=== PATIENT | male | born 1960 ===

== ENCOUNTER 2020-01-03 16:30 | Inpatient (IN) | payer OTHER ==
[~2020-01-03] VITALS: Ht 165.1 cm; Wt 73.6 kg
[2020-01-03 16:45] VITALS: BP 126/67
[2020-01-03] MEDS ORDERED: OxyCODONE HCL/ACETAMINOPHEN 5-325 MG TABLET PO PRN (18:15)
[2020-01-03] MEDS ORDERED: MAGNESIUM HYDROXIDE SUSPENSION 30 ML UDCUP PO PRN (18:15)
[2020-01-03] MEDS ORDERED: ZOLPIDEM TARTRATE 5 MG TABLET PO PRN (18:15)
[2020-01-03 19:17] LABS: BASOPHILS % (AUTO) 0.3 % (0.0-2.0); EOSINOPHILS % (AUTO) 0 % (1.0-6.0); HEMATOCRIT 28.6 % (41-53); HEMOGLOBIN 9.7 g/dL (13.5-17.5); LYMPHOCYTES # (AUTO) 0.8 K/uL (1.0-4.8); LYMPHOCYTES % (AUTO) 9.5 % (22.0-44.0); MEAN CORPUSCULAR HEMOGLOBIN 28.6 pg (26.0-34.0); MEAN CORPUSCULAR HGB CONC 34.1 G/dL (31.0-37.0); MEAN CORPUSCULAR VOLUME 84 fL (80-100); MONOCYTES # (AUTO) 0.7 K/uL (0.1-1.0); MONOCYTES % (AUTO) 7.8 % (2.0-9.0); NEUTROPHILS # (AUTO) 7.2 K/uL (1.8-7.7); NEUTROPHILS % (AUTO) 82.4 % (40.0-70.0); PLATELET COUNT (AUTO) 218 K/uL (150-450); RED CELL DISTRIBUTION WIDTH 14.6 % (11.5-14.5)
[2020-01-03 19:33] LABS: ALBUMIN 0.8 g/dL (3.4-5.0); BILIRUBIN,TOTAL 0.1 mg/dL (0.1-1.0); CALCIUM, TOTAL 7.3 mg/dL (8.8-10.5); CREATININE 2.55 mg/dL (0.60-1.30); TOTAL PROTEIN, SERUM 4.4 g/dL (6.4-8.2)
[2020-01-03] MEDS ORDERED: POTASSIUM CHLORIDE 10 MEQ ER TABLET PO ONE (20:30)
[2020-01-03] MEDS ORDERED: SODIUM CHLORIDE 0.9% 1,000 ML IV ONE (20:30)
[2020-01-03 21:53] VITALS: BP 149/89
[2020-01-04] MEDS: ACETAMINOPHEN 325 MG TABLET PO PRN ×3 (00:20→23:58)
[2020-01-04 00:26] VITALS: BP 163/89
[2020-01-04 05:00] VITALS: BP 130/80
[2020-01-04] MEDS: DEXTROSE 50%-WATER 25 GM/50 ML SYRINGE IVP PRN (06:00)
[2020-01-04] MEDS ORDERED: LISI40TA4 PO (06:57)
[2020-01-04] MEDS ORDERED: AMLO2.5T29 PO (06:57)
[2020-01-04] MEDS ORDERED: TERB250T51 PO (06:57)
[2020-01-04] MEDS ORDERED: METF-514 PO (06:57)
[2020-01-04] MEDS ORDERED: [UNRECOGNIZED DRUG - CODE] PO (06:57)
[2020-01-04] MEDS ORDERED: INSLAN SQ (06:57)
[2020-01-04] MEDS ORDERED: CALC-613 PO (06:57)
[2020-01-04 07:42] LABS: CALCIUM, TOTAL 7.6 mg/dL (8.8-10.5); CREATININE 2.49 mg/dL (0.60-1.30)
[2020-01-04 07:49] LABS: POTASSIUM 2.9 mmol/L (3.5-5.1)
[2020-01-04 08:00] VITALS: BP 156/89
[2020-01-04] MEDS: FAMOTIDINE 20 MG TABLET PO SCH (08:40)
[2020-01-04] MEDS: MULTIVITAMINS WITH MINERALS, THERAPEUTIC TABLET PO SCH (08:40)
[2020-01-04] MEDS ORDERED: POTASSIUM CHLORIDE 20 MEQ ER TABLET PO ONE (09:00)
[2020-01-04] MEDS: AZITHROMYCIN 500 MG/NS 250 ML IV SCH (09:39)
[2020-01-04] MEDS: ZINC SULFATE 220 MG CAPSULE PO SCH ×2 (09:39→21:46)
[2020-01-04] MEDS: HYDROXYCHLOROQUINE SULFATE 200 MG TABLET PO SCH ×2 (09:39→21:46)
[2020-01-04 12:00] VITALS: BP 107/69
[2020-01-04 13:50] LABS: MAGNESIUM 1.7 mg/dL (1.80-2.40); PHOSPHORUS 3.8 mg/dL (2.5-4.9)
[2020-01-04] MEDS: BISMUTH SUBSALICYLATE 524 MG/30 ML SUSPENSION UDCUP PO PRN ×2 (15:09→21:46)
[2020-01-04 16:00] VITALS: BP 134/76
[2020-01-04 20:00] VITALS: BP 160/89
[2020-01-04 20:43] LABS: GLUCOMETER DEV NAME(LOC) 5N.2; GLUCOSE,POINT OF CARE 119 MG/DL (70-110)
[2020-01-04 20:43] LABS: GLUCOMETER DEV NAME(LOC) 5N.2; GLUCOSE,POINT OF CARE 169 MG/DL (70-110)
[2020-01-05 01:00] VITALS: BP 125/74
[2020-01-05 05:39] VITALS: BP 133/68
[2020-01-05] MEDS: DEXTROSE 50%-WATER 25 GM/50 ML SYRINGE IVP PRN (05:44)
[2020-01-05 08:00] VITALS: BP 143/79
[2020-01-05 08:10] LABS: BASOPHILS % (AUTO) 0.4 % (0.0-2.0); EOSINOPHILS % (AUTO) 0.1 % (1.0-6.0); HEMOGLOBIN 10.2 g/dL (13.5-17.5); LYMPHOCYTES # (AUTO) 0.7 K/uL (1.0-4.8); LYMPHOCYTES % (AUTO) 7.2 % (22.0-44.0); MEAN CORPUSCULAR HEMOGLOBIN 29.1 pg (26.0-34.0); MEAN CORPUSCULAR VOLUME 85 fL (80-100); MONOCYTES # (AUTO) 0.5 K/uL (0.1-1.0); MONOCYTES % (AUTO) 4.8 % (2.0-9.0); NEUTROPHILS # (AUTO) 8.5 K/uL (1.8-7.7); PLATELET COUNT (AUTO) 294 K/uL (150-450); RED BLOOD CELL COUNT(AUTO) 3.51 MIL/uL (4.50-5.90); RED CELL DISTRIBUTION WIDTH 14.5 % (11.5-14.5)
[2020-01-05 08:13] LABS: NEUTROPHILS % (AUTO) 87.5 % (40.0-70.0)
[2020-01-05 09:02] LABS: ALBUMIN 0.7 g/dL (3.4-5.0); BILIRUBIN,TOTAL 0.2 mg/dL (0.1-1.0); C-REACTIVE PROTEIN QUANT 14.56 mg/dL (0.00-0.30); CALCIUM, TOTAL 7.4 mg/dL (8.8-10.5); CREATININE 2.61 mg/dL (0.60-1.30); POTASSIUM 3.2 mmol/L (3.5-5.1); TOTAL PROTEIN, SERUM 4.4 g/dL (6.4-8.2)
[2020-01-05] MEDS: HYDROXYCHLOROQUINE SULFATE 200 MG TABLET PO SCH ×2 (09:02→22:13)
[2020-01-05] MEDS: MULTIVITAMINS WITH MINERALS, THERAPEUTIC TABLET PO SCH (09:02)
[2020-01-05] MEDS: ZINC SULFATE 220 MG CAPSULE PO SCH ×2 (09:03→22:13)
[2020-01-05] MEDS: AZITHROMYCIN 500 MG/NS 250 ML IV SCH (09:03)
[2020-01-05] MEDS: FAMOTIDINE 20 MG TABLET PO SCH (09:03)
[2020-01-05 09:05] LABS: D-DIMER 3.92 mg/L FEU (0.00-0.50); PROTHROMBIN TIME 10.5 SEC (9.4-11.6)
[2020-01-05] MEDS ORDERED: POTASSIUM CHLORIDE 20 MEQ ER TABLET PO ONE (11:30)
[2020-01-05] MEDS ORDERED: ASPIRIN 325 MG TABLET PO ONE (11:45)
[2020-01-05] MEDS: HEPARIN SODIUM,PORCINE 5,000 UNITS/ML VIAL SQ SCH ×2 (11:45→20:22)
[2020-01-05 12:30] VITALS: BP 110/71
[2020-01-05 12:39] LABS: ABG A-A DIFF O2 612.3 mmHg (10-20.0); ABG BASE EXCESS -11.2 mmol/L (-2.0-3.0); ABG CARBOXYHEMOGLOBIN 0.3 % (0.0-1.5); ABG HCO3 16.6 mmol/L (22.0-26.0); ABG METHEMOGLOBIN 0.3 % (0.0-1.5); ABG OXYGEN CONTENT 13.5 mL/dL (15.0-23.0); ABG OXYGEN SATURATION 95.4 % (95.0-98.0); ABG OXYHEMOGLOBIN 94.8 % (94.0-100.0); ABG PCO2 26 mmHg (35-45); ABG PH 7.364 (7.35-7.450); ABG TOTAL HEMOGLOBIN 10.1 G/dL (12.0-18.0); PO2, ARTERIAL BG 75.7 mmHg (84.0-92.0); SOURCE, BLOOD GAS ARTERIAL; TEMPERATURE, FAHRENHEIT, BG 98.2 FAHREN (96.0-98.6)
[2020-01-05 12:40] LABS: O2 DEVICE,BLOOD GAS NON REBREATHER (ROOM AIR); SITE, BLOOD GAS LFT BRACHIAL
[2020-01-05 12:41] LABS: GLUCOMETER DEV NAME(LOC) 5N.2; GLUCOSE,POINT OF CARE 134 MG/DL (70-110)
[2020-01-05 12:46] LABS: GLUCOMETER DEV NAME(LOC) 5N.1; GLUCOSE,POINT OF CARE 157 MG/DL (70-110)
[2020-01-05 12:46] LABS: GLUCOMETER DEV NAME(LOC) 5N.1; GLUCOSE,POINT OF CARE 57 MG/DL (70-110)
[2020-01-05 12:47] LABS: GLUCOMETER DEV NAME(LOC) 5N.1; GLUCOSE,POINT OF CARE 67 MG/DL (70-110)
[2020-01-05 12:48] LABS: GLUCOMETER DEV NAME(LOC) 5N.1; GLUCOSE,POINT OF CARE 105 MG/DL (70-110)
[2020-01-05] MEDS ORDERED: ATORVASTATIN CALCIUM 10 MG TABLET PO ONE (13:30)
[2020-01-05 14:01] LABS: POTASSIUM 3.4 mmol/L (3.5-5.1)
[2020-01-05 16:00] VITALS: BP 111/72
[2020-01-05] MEDS ORDERED: VECURONIUM BROMIDE 10 MG/VIAL ONE (16:47)
[2020-01-05] MEDS ORDERED: ETOMIDATE 2 MG/ML 10 ML VIAL ONE (16:47)
[2020-01-05] MEDS ORDERED: FUROSEMIDE 20 MG/2 ML VIAL IVP ONE (17:00)
[2020-01-05 20:00] VITALS: BP 133/71
[2020-01-05 20:36] LABS: GLUCOSE,POINT OF CARE 98 MG/DL (70-110)
[2020-01-05] MEDS ORDERED: POTASSIUM CHLORIDE 8 MEQ ER TABLET PO ONE (22:30)
[2020-01-06] VITALS: BP 135/80
[2020-01-06] MEDS: ACETAMINOPHEN 325 MG TABLET PO PRN (00:17)
[2020-01-06] MEDS ORDERED: ROCURONIUM BROMIDE 10 MG/ML 5 ML VIAL ONE (01:37)
[2020-01-06] MEDS ORDERED: RAPID SEQUENCE KIT [RSI] 1 EACH KIT ONE ×2 (01:38→11:44)
[2020-01-06 04:00] VITALS: BP 140/74
[2020-01-06 06:21] LABS: BASOPHILS % (AUTO) 0.3 % (0.0-2.0); EOSINOPHILS % (AUTO) 0 % (1.0-6.0); HEMATOCRIT 31.2 % (41-53); HEMOGLOBIN 10.2 g/dL (13.5-17.5); LYMPHOCYTES # (AUTO) 0.4 K/uL (1.0-4.8); MEAN CORPUSCULAR HGB CONC 32.6 G/dL (31.0-37.0); MEAN CORPUSCULAR VOLUME 86 fL (80-100); MONOCYTES # (AUTO) 0.5 K/uL (0.1-1.0); MONOCYTES % (AUTO) 3.2 % (2.0-9.0); NEUTROPHILS # (AUTO) 13.5 K/uL (1.8-7.7); PLATELET COUNT (AUTO) 350 K/uL (150-450); RED BLOOD CELL COUNT(AUTO) 3.63 MIL/uL (4.50-5.90); RED CELL DISTRIBUTION WIDTH 14.8 % (11.5-14.5)
[2020-01-06 06:24] LABS: NEUTROPHILS % (AUTO) 93.5 % (40.0-70.0)
[2020-01-06 06:39] LABS: ALBUMIN 0.7 g/dL (3.4-5.0); BILIRUBIN,TOTAL 0.1 mg/dL (0.1-1.0); CALCIUM, TOTAL 7.9 mg/dL (8.8-10.5); CREATININE 2.64 mg/dL (0.60-1.30); MAGNESIUM 1.8 mg/dL (1.80-2.40); POTASSIUM 3.7 mmol/L (3.5-5.1); TOTAL PROTEIN, SERUM 4.8 g/dL (6.4-8.2)
[2020-01-06 08:00] VITALS: BP 159/87
[2020-01-06] MEDS ORDERED: ISOSORB DINIT/HYDRALAZINE HCL 20-37.5 MG TABLET PO SCH (09:00)
[2020-01-06] MEDS ORDERED: CARVEDILOL 3.125 MG TABLET PO SCH (09:00)
[2020-01-06] MEDS: HYDROXYCHLOROQUINE SULFATE 200 MG TABLET PO SCH ×2 (09:16→21:25)
[2020-01-06] MEDS: FAMOTIDINE 20 MG TABLET PO SCH (09:17)
[2020-01-06] MEDS: MULTIVITAMINS WITH MINERALS, THERAPEUTIC TABLET PO SCH (09:17)
[2020-01-06] MEDS: ASPIRIN 81 MG CHEWABLE TABLET PO SCH (09:17)
[2020-01-06] MEDS: ZINC SULFATE 220 MG CAPSULE PO SCH ×2 (09:17→21:25)
[2020-01-06] MEDS: HEPARIN SODIUM,PORCINE 5,000 UNITS/ML VIAL SQ SCH ×2 (09:18→21:00)
[2020-01-06 10:41] LABS: GLUCOSE,POINT OF CARE 88 MG/DL (70-110)
[2020-01-06 10:41] LABS: GLUCOSE,POINT OF CARE 104 MG/DL (70-110)
[2020-01-06] MEDS: AZITHROMYCIN 500 MG/NS 250 ML IV SCH (11:00)
[2020-01-06] MEDS: METOPROLOL TARTRATE 25 MG TABLET PO SCH ×2 (11:30→21:00)
[2020-01-06] MEDS ORDERED: CHOL100018 PO (11:39)
[2020-01-06] MEDS ORDERED: METF-960 PO (11:39)
[2020-01-06] MEDS ORDERED: AMLO5TAB9 PO (11:39)
[2020-01-06] MEDS ORDERED: FentaNYL CITRATE PF 500 MCG in DEXTROSE 5%-WATER 90 ML IV PRN (11:48)
[2020-01-06] MEDS ORDERED: SODIUM CHLORIDE 0.9% 500 ML IV ONE (11:50)
[2020-01-06 12:00] VITALS: BP 133/79
[2020-01-06] MEDS: PROPOFOL 1000 MG/ISO-OSM 100 ML IV PRN ×2 (12:30→22:00)
[2020-01-06] MEDS ORDERED: HydrALAZINE HCL 20 MG/ML VIAL IVP PRN (13:00)
[2020-01-06] MEDS: NITROGLYCERIN 2% (1 GM=INCH) PACKET TP SCH ×3 (13:00→23:39)
[2020-01-06] MEDS: DEXTROSE 5%-0.45% SODIUM CHL 1,000 ML IV SCH (14:36)
[2020-01-06 16:00] VITALS: BP 111/69
[2020-01-06] MEDS: ATORVASTATIN CALCIUM 10 MG TABLET PO SCH (16:10)
[2020-01-06] MEDS: CLOPIDOGREL BISULFATE 75 MG TABLET PO SCH (16:11)
[2020-01-06 17:50] LABS: GLUCOSE,POINT OF CARE 72 MG/DL (70-110)
[2020-01-06 20:00] VITALS: BP 134/77
[2020-01-06 20:12] LABS: GLUCOSE,POINT OF CARE 118 MG/DL (70-110)
[2020-01-07] VITALS: BP 81/99
[2020-01-07] MEDS: INSULIN LISPRO 100 UNITS/ML SQ PRN ×3 (00:19→17:18)
[2020-01-07 04:00] VITALS: BP 79/56
[2020-01-07 06:52] LABS: GLUCOSE,POINT OF CARE 182 MG/DL (70-110)
[2020-01-07 06:52] LABS: GLUCOSE,POINT OF CARE 173 MG/DL (70-110)
[2020-01-07 08:00] VITALS: BP 90/59
[2020-01-07] MEDS: FAMOTIDINE 20 MG TABLET PO SCH (08:53)
[2020-01-07] MEDS: CLOPIDOGREL BISULFATE 75 MG TABLET PO SCH (08:54)
[2020-01-07] MEDS: ASPIRIN 81 MG CHEWABLE TABLET PO SCH (08:54)
[2020-01-07] MEDS: AZITHROMYCIN 500 MG/NS 250 ML IV SCH (08:54)
[2020-01-07] MEDS: HEPARIN SODIUM,PORCINE 5,000 UNITS/ML VIAL SQ SCH ×2 (08:54→20:35)
[2020-01-07] MEDS: ATORVASTATIN CALCIUM 10 MG TABLET PO SCH (08:55)
[2020-01-07 09:00] LABS: HEMATOCRIT 29.4 % (41-53); HEMOGLOBIN 9.5 g/dL (13.5-17.5); MEAN CORPUSCULAR HEMOGLOBIN 27.7 pg (26.0-34.0); MEAN CORPUSCULAR HGB CONC 32.3 G/dL (31.0-37.0); MEAN CORPUSCULAR VOLUME 86 fL (80-100); PLATELET COUNT (AUTO) 375 K/uL (150-450); RED BLOOD CELL COUNT(AUTO) 3.44 MIL/uL (4.50-5.90); RED CELL DISTRIBUTION WIDTH 15.2 % (11.5-14.5)
[2020-01-07] MEDS: NITROGLYCERIN 2% (1 GM=INCH) PACKET TP SCH ×2 (09:02→15:14)
[2020-01-07] MEDS: MULTIVITAMINS WITH MINERALS, THERAPEUTIC TABLET PO SCH (09:03)
[2020-01-07] MEDS: METOPROLOL TARTRATE 25 MG TABLET PO SCH (09:03)
[2020-01-07 09:21] LABS: BILIRUBIN,TOTAL 0.1 mg/dL (0.1-1.0); CALCIUM, TOTAL 7.9 mg/dL (8.8-10.5); CREATININE 3.45 mg/dL (0.60-1.30); MAGNESIUM 2.3 mg/dL (1.80-2.40); POTASSIUM 3.3 mmol/L (3.5-5.1); TOTAL PROTEIN, SERUM 4.8 g/dL (6.4-8.2)
[2020-01-07 10:13] LABS: ALBUMIN 0.6 g/dL (3.4-5.0)
[2020-01-07 10:16] LABS: BAND NEUTROPHILS % (MANUAL) 25 % (0-5); LYMPHOCYTES % (MANUAL) 11 % (22-44); SEGMENTED NEUTROPHILS % 64 % (40-70)
[2020-01-07] MEDS ORDERED: DOPamine HCL 400 MG/D5%-WATER 250 ML IV ONE (10:16)
[2020-01-07] MEDS ORDERED: ATROPINE SULFATE 0.1 MG/ML 10 ML SYRINGE IVP ONE (10:20)
[2020-01-07 10:21] LABS: D-DIMER 8.56 mg/L FEU (0.00-0.50)
[2020-01-07 10:23] LABS: C-REACTIVE PROTEIN QUANT 28.5 mg/dL (0.00-0.30)
[2020-01-07] MEDS: DOPamine HCL 400 MG/D5%-WATER 250 ML IV PRN (10:30)
[2020-01-07 10:38] LABS: ABG METHEMOGLOBIN 0.3 % (0.0-1.5); SOURCE, BLOOD GAS ARTERIAL
[2020-01-07 11:04] LABS: ABG A-A DIFF O2 635.7 mmHg (10-20.0); ABG BASE EXCESS -12.9 mmol/L (-2.0-3.0); ABG CARBOXYHEMOGLOBIN 0.1 % (0.0-1.5); ABG HCO3 14.8 mmol/L (22.0-26.0); ABG OXYGEN CONTENT 12.9 mL/dL (15.0-23.0); ABG OXYHEMOGLOBIN 81.2 % (94.0-100.0); ABG PCO2 35 mmHg (35-45); ABG PH 7.237 (7.35-7.450); ABG TOTAL HEMOGLOBIN 11.3 G/dL (12.0-18.0); PO2, ARTERIAL BG 44.5 mmHg (84.0-92.0)
[2020-01-07] MEDS ORDERED: SODIUM BICARBONATE [ADULT] 8.4% 50 MEQ/50 ML SYRINGE IVP ONE (11:15)
[2020-01-07 12:00] VITALS: BP 122/94
[2020-01-07] MEDS ORDERED: HEPARIN SODIUM,PORCINE 1,000 UNITS/ML VIAL IVP ONE ×3 (12:00→12:30)
[2020-01-07] MEDS: ZINC SULFATE 220 MG CAPSULE PO SCH ×2 (12:25→22:49)
[2020-01-07] MEDS: HYDROXYCHLOROQUINE SULFATE 200 MG TABLET PO SCH ×2 (12:25→22:49)
[2020-01-07] MEDS: PROPOFOL 1000 MG/ISO-OSM 100 ML IV PRN (13:09)
[2020-01-07 13:49] LABS: ABG A-A DIFF O2 537.9 mmHg (10-20.0); ABG CARBOXYHEMOGLOBIN 0.3 % (0.0-1.5); ABG HCO3 17.2 mmol/L (22.0-26.0); ABG METHEMOGLOBIN 0.1 % (0.0-1.5); ABG OXYGEN CONTENT 16.9 mL/dL (15.0-23.0); ABG OXYGEN SATURATION 98.2 % (95.0-98.0); ABG OXYHEMOGLOBIN 97.8 % (94.0-100.0); ABG PCO2 52 mmHg (35-45); ABG TOTAL HEMOGLOBIN 12.1 G/dL (12.0-18.0); PO2, ARTERIAL BG 125.8 mmHg (84.0-92.0); SOURCE, BLOOD GAS ARTERIAL
[2020-01-07] MEDS: DEXTROSE 5%-0.45% SODIUM CHL 1,000 ML IV SCH (15:15)
[2020-01-07 15:27] LABS: ABG OXYGEN SATURATION 81.5 % (95.0-98.0)
[2020-01-07 15:28] LABS: O2 DEVICE,BLOOD GAS VENTILATOR (ROOM AIR); PEEP,BG 5 cm H2O; SITE, BLOOD GAS RT RADIAL; SPONTANEOUS VT, BG 508 ml; VT, ABG 500 ml
[2020-01-07 15:39] LABS: ABG PH 7.189 (7.35-7.450); O2 DEVICE,BLOOD GAS VENTILATOR (ROOM AIR); SITE, BLOOD GAS RT RADIAL; SPONTANEOUS VT, BG 282 ml
[2020-01-07 15:41] LABS: VENT MODE, BG APRV (ROOM AIR)
[2020-01-07 16:00] VITALS: BP 120/90
[2020-01-07] MEDS ORDERED: *CLINICAL-RX DOSING [ENTER DRUG IN COMMENTS] CLINICAL ONE (16:00)
[2020-01-07 16:55] LABS: ABG BASE EXCESS -3.9 mmol/L (-2.0-3.0); ABG CARBOXYHEMOGLOBIN 0.3 % (0.0-1.5); ABG HCO3 21.3 mmol/L (22.0-26.0); ABG METHEMOGLOBIN 0.4 % (0.0-1.5); ABG OXYGEN CONTENT 16.7 mL/dL (15.0-23.0); ABG OXYGEN SATURATION 97.5 % (95.0-98.0); ABG OXYHEMOGLOBIN 96.8 % (94.0-100.0); ABG PCO2 43 mmHg (35-45); ABG PH 7.327 (7.35-7.450); ABG TOTAL HEMOGLOBIN 12.2 G/dL (12.0-18.0); PO2, ARTERIAL BG 96.8 mmHg (84.0-92.0); SOURCE, BLOOD GAS ARTERIAL; TEMPERATURE, FAHRENHEIT, BG 97.4 FAHREN (96.0-98.6)
[2020-01-07 17:15] LABS: O2 DEVICE,BLOOD GAS VENTILATOR (ROOM AIR); SITE, BLOOD GAS RT RADIAL
[2020-01-07] MEDS: DAPTOMYCIN 400 MG in SODIUM CHLORIDE 0.9% 50 ML IV SCH (17:15)
[2020-01-07 17:16] LABS: SPONTANEOUS VT, BG 412 ml; VENT MODE, BG APRV (ROOM AIR)
[2020-01-07 17:20] LABS: APPEARANCE,URINE CLOUDY (CLEAR); BILIRUBIN,URINE NEGATIVE (NEGATIVE); GLUCOSE, URINE (UA) 500 mg/dL (NEGATIVE); KETONES,URINE NEGATIVE (NEGATIVE); LEUKOCYTE ESTERASE ,URINE NEGATIVE (NEGATIVE); NITRATE,URINE NEGATIVE (NEGATIVE); OCCULT BLOOD,URINE MODERATE (NEGATIVE); PH,URINE 5.5 (5.0-8.0); PROTEIN,URINE SEE CONFIRM (NEGATIVE); UROBILINOGEN,URINE 0.2 mg/dL (<=1.0)
[2020-01-07 17:43] LABS: SULFOSALICYLIC ACID,URINE 4+ (Negative)
[2020-01-07 17:44] LABS: BACTERIA,URINE Moderate /HPF (None Seen); RBC,URINE 0-2 /HPF (0-2); SQUAMOUS EPITHELIAL CELL,UR Few /LPF (None Seen); WBC,URINE 0-2 /HPF (0-5)
[2020-01-07] MEDS: NOREPINEPHRINE 4 MG/D5%-WATER 250 ML IV PRN (18:32)
[2020-01-07 19:59] LABS: GLUCOSE,POINT OF CARE 238 MG/DL (70-110)
[2020-01-07 19:59] LABS: GLUCOSE,POINT OF CARE 263 MG/DL (70-110)
[2020-01-07 20:00] VITALS: BP 124/81
[2020-01-07] MEDS: CefTAZidime PENTAHYDRATE 2 GM in DEXTROSE 5%-WATER 50 ML IV SCH (20:34)
[2020-01-08] VITALS (9 sets, daily range): BP systolic 97–191; BP diastolic 56–97
[2020-01-08 01:35] LABS: GLUCOSE,POINT OF CARE 139 MG/DL (70-110)
[2020-01-08] MEDS: NOREPINEPHRINE 4 MG/D5%-WATER 250 ML IV PRN ×2 (02:58→08:47)
[2020-01-08] MEDS: PROPOFOL 1000 MG/ISO-OSM 100 ML IV PRN ×3 (04:44→18:29)
[2020-01-08] MEDS: DEXTROSE 5%-0.45% SODIUM CHL 1,000 ML IV SCH (04:45)
[2020-01-08 07:04] LABS: D-DIMER 34.68 mg/L FEU (0.00-0.50)
[2020-01-08 07:05] LABS: BASOPHILS % (AUTO) 0.1 % (0.0-2.0); EOSINOPHILS % (AUTO) 0.1 % (1.0-6.0); HEMATOCRIT 26.1 % (41-53); HEMOGLOBIN 8.5 g/dL (13.5-17.5); LYMPHOCYTES # (AUTO) 0.4 K/uL (1.0-4.8); LYMPHOCYTES % (AUTO) 2.9 % (22.0-44.0); MEAN CORPUSCULAR HEMOGLOBIN 27.9 pg (26.0-34.0); MEAN CORPUSCULAR HGB CONC 32.7 G/dL (31.0-37.0); MEAN CORPUSCULAR VOLUME 85 fL (80-100); MONOCYTES # (AUTO) 0.3 K/uL (0.1-1.0); MONOCYTES % (AUTO) 2.2 % (2.0-9.0); NEUTROPHILS # (AUTO) 13.5 K/uL (1.8-7.7); RED BLOOD CELL COUNT(AUTO) 3.05 MIL/uL (4.50-5.90); RED CELL DISTRIBUTION WIDTH 15.4 % (11.5-14.5)
[2020-01-08 07:11] LABS: CALCIUM, TOTAL 7.2 mg/dL (8.8-10.5); CREATININE 3.28 mg/dL (0.60-1.30); MAGNESIUM 1.9 mg/dL (1.80-2.40); PHOSPHORUS 4.7 mg/dL (2.5-4.9); POTASSIUM 3.4 mmol/L (3.5-5.1)
[2020-01-08 07:22] LABS: NEUTROPHILS % (AUTO) 94.7 % (40.0-70.0)
[2020-01-08 07:23] LABS: PLATELET COUNT (AUTO) 337 K/uL (150-450)
[2020-01-08 07:44] LABS: C-REACTIVE PROTEIN QUANT 23.59 mg/dL (0.00-0.30)
[2020-01-08] MEDS: MULTIVITAMINS WITH MINERALS, THERAPEUTIC TABLET PO SCH (08:41)
[2020-01-08] MEDS: ZINC SULFATE 220 MG CAPSULE PO SCH ×2 (08:41→22:39)
[2020-01-08] MEDS: HYDROXYCHLOROQUINE SULFATE 200 MG TABLET PO SCH ×2 (08:41→22:39)
[2020-01-08] MEDS: NITROGLYCERIN 2% (1 GM=INCH) PACKET TP SCH ×4 (08:42→23:28)
[2020-01-08] MEDS: FAMOTIDINE 20 MG TABLET PO SCH (08:42)
[2020-01-08] MEDS: HEPARIN SODIUM,PORCINE 5,000 UNITS/ML VIAL SQ SCH ×2 (08:43→21:28)
[2020-01-08] MEDS: AZITHROMYCIN 500 MG/NS 250 ML IV SCH (08:46)
[2020-01-08] MEDS: ATORVASTATIN CALCIUM 10 MG TABLET PO SCH (09:00)
[2020-01-08] MEDS: CefTAZidime PENTAHYDRATE 2 GM in DEXTROSE 5%-WATER 50 ML IV SCH (17:12)
[2020-01-08] MEDS: MetroNIDAZOLE 500 MG/NACL 100 ML IV SCH ×2 (17:12→22:40)
[2020-01-09] VITALS (12 sets, daily range): BP systolic 88–130; BP diastolic 58–75
[2020-01-09] MEDS: INSULIN LISPRO 100 UNITS/ML SQ PRN ×4 (00:03→19:01)
[2020-01-09] MEDS: DEXTROSE 5%-0.45% SODIUM CHL 1,000 ML IV SCH ×2 (02:03→22:33)
[2020-01-09] MEDS: NOREPINEPHRINE 4 MG/D5%-WATER 250 ML IV PRN (03:01)
[2020-01-09] MEDS: PROPOFOL 1000 MG/ISO-OSM 100 ML IV PRN ×3 (04:25→19:05)
[2020-01-09] MEDS: MetroNIDAZOLE 500 MG/NACL 100 ML IV SCH ×3 (06:16→22:33)
[2020-01-09 06:36] LABS: ALANINE AMINOTRANSFERASE 12 U/L (12-78); ALKALINE PHOSPHATASE 113 U/L (46-116); ANION GAP 12 mmol/L (8-16); ASPARTATE AMINOTRANSFERASE 22 U/L (15-37); BILIRUBIN,TOTAL 0.2 mg/dL (0.1-1.0); CALCIUM, TOTAL 7.3 mg/dL (8.8-10.5); CARBON DIOXIDE 19 mmol/L (22-29); CHLORIDE 100 mmol/L (98-107); CREATININE 4.34 mg/dL (0.60-1.30); GLOMERULAR FILTR. RATE CALC 14 mL/min (>60); GLUCOSE,RANDOM 224 mg/dL (70-110); POTASSIUM 3.3 mmol/L (3.5-5.1); SODIUM SERUM 131 mmol/L (136-145); TOTAL PROTEIN, SERUM 5.2 g/dL (6.4-8.2); UREA NITROGEN, BLOOD 56 mg/dL (7-18)
[2020-01-09 06:38] LABS: ALBUMIN < 0.6 g/dL (3.4-5.0)
[2020-01-09 06:42] LABS: BASOPHILS % (AUTO) 0.1 % (0.0-2.0); EOSINOPHILS % (AUTO) 0.3 % (1.0-6.0); HEMATOCRIT 24.8 % (41-53); LYMPHOCYTES # (AUTO) 0.4 K/uL (1.0-4.8); LYMPHOCYTES % (AUTO) 2.9 % (22.0-44.0); MEAN CORPUSCULAR HEMOGLOBIN 27.7 pg (26.0-34.0); MEAN CORPUSCULAR HGB CONC 32.3 G/dL (31.0-37.0); MEAN CORPUSCULAR VOLUME 86 fL (80-100); MONOCYTES # (AUTO) 0.2 K/uL (0.1-1.0); MONOCYTES % (AUTO) 1.6 % (2.0-9.0); NEUTROPHILS # (AUTO) 14.5 K/uL (1.8-7.7); PLATELET COUNT (AUTO) 169 K/uL (150-450); RED BLOOD CELL COUNT(AUTO) 2.89 MIL/uL (4.50-5.90); RED CELL DISTRIBUTION WIDTH 15.1 % (11.5-14.5)
[2020-01-09 06:45] LABS: NEUTROPHILS % (AUTO) 95.1 % (40.0-70.0)
[2020-01-09 07:26] LABS: GLUCOSE,POINT OF CARE 210 MG/DL (70-110)
[2020-01-09 07:26] LABS: GLUCOSE,POINT OF CARE 219 MG/DL (70-110)
[2020-01-09] MEDS: HEPARIN SODIUM,PORCINE 5,000 UNITS/ML VIAL SQ SCH ×2 (09:30→20:10)
[2020-01-09] MEDS: NITROGLYCERIN 2% (1 GM=INCH) PACKET TP SCH ×2 (09:30→16:13)
[2020-01-09] MEDS: MULTIVITAMINS WITH MINERALS, THERAPEUTIC TABLET PO SCH (09:30)
[2020-01-09] MEDS: FAMOTIDINE 20 MG TABLET PO SCH (09:30)
[2020-01-09] MEDS: ATORVASTATIN CALCIUM 10 MG TABLET PO SCH (09:30)
[2020-01-09] MEDS: ZINC SULFATE 220 MG CAPSULE PO SCH ×2 (09:30→20:10)
[2020-01-09] MEDS: AZITHROMYCIN 500 MG/NS 250 ML IV SCH (09:31)
[2020-01-09] MEDS: CefTAZidime PENTAHYDRATE 2 GM in DEXTROSE 5%-WATER 50 ML IV SCH (16:15)
[2020-01-09] MEDS: DAPTOMYCIN 400 MG in SODIUM CHLORIDE 0.9% 50 ML IV SCH (18:59)
[2020-01-09 22:43] LABS: GLUCOSE,POINT OF CARE 174 MG/DL (70-110)
[2020-01-09 22:43] LABS: GLUCOSE,POINT OF CARE 169 MG/DL (70-110)
[2020-01-10] VITALS (10 sets, daily range): BP systolic 83–116; BP diastolic 52–70
[2020-01-10] MEDS: NITROGLYCERIN 2% (1 GM=INCH) PACKET TP SCH ×3 (00:07→16:55)
[2020-01-10] MEDS: INSULIN LISPRO 100 UNITS/ML SQ PRN ×2 (00:08→06:07)
[2020-01-10] MEDS: PROPOFOL 1000 MG/ISO-OSM 100 ML IV PRN ×2 (06:06→08:46)
[2020-01-10] MEDS: MetroNIDAZOLE 500 MG/NACL 100 ML IV SCH ×2 (06:07→14:39)
[2020-01-10 06:30] LABS: EOSINOPHILS % (AUTO) 0.1 % (1.0-6.0); HEMATOCRIT 25.3 % (41-53); HEMOGLOBIN 8.4 g/dL (13.5-17.5); LYMPHOCYTES # (AUTO) 0.3 K/uL (1.0-4.8); LYMPHOCYTES % (AUTO) 1.9 % (22.0-44.0); MEAN CORPUSCULAR HEMOGLOBIN 29.1 pg (26.0-34.0); MEAN CORPUSCULAR HGB CONC 33.4 G/dL (31.0-37.0); MEAN CORPUSCULAR VOLUME 87 fL (80-100); MONOCYTES # (AUTO) 0.4 K/uL (0.1-1.0); MONOCYTES % (AUTO) 2.9 % (2.0-9.0); NEUTROPHILS # (AUTO) 14.2 K/uL (1.8-7.7); PLATELET COUNT (AUTO) 130 K/uL (150-450); RED CELL DISTRIBUTION WIDTH 15.5 % (11.5-14.5)
[2020-01-10 07:08] LABS: GLUCOSE,POINT OF CARE 147 MG/DL (70-110)
[2020-01-10 07:08] LABS: GLUCOSE,POINT OF CARE 157 MG/DL (70-110)
[2020-01-10 07:12] LABS: ALBUMIN 0.6 g/dL (3.4-5.0); BILIRUBIN,TOTAL 0.2 mg/dL (0.1-1.0); CALCIUM, TOTAL 7.5 mg/dL (8.8-10.5); CREATININE 5.36 mg/dL (0.60-1.30); MAGNESIUM 2.2 mg/dL (1.80-2.40); PHOSPHORUS 7.3 mg/dL (2.5-4.9); POTASSIUM 3.8 mmol/L (3.5-5.1); TOTAL PROTEIN, SERUM 5.2 g/dL (6.4-8.2)
[2020-01-10 07:14] LABS: NEUTROPHILS % (AUTO) 95.1 % (40.0-70.0)
[2020-01-10 07:30] LABS: D-DIMER 29.6 mg/L FEU (0.00-0.50)
[2020-01-10 07:47] LABS: C-REACTIVE PROTEIN QUANT 27.53 mg/dL (0.00-0.30)
[2020-01-10] MEDS: ZINC SULFATE 220 MG CAPSULE PO SCH ×2 (08:44→21:13)
[2020-01-10] MEDS: HEPARIN SODIUM,PORCINE 5,000 UNITS/ML VIAL SQ SCH ×2 (08:45→21:14)
[2020-01-10] MEDS: FAMOTIDINE 20 MG TABLET PO SCH (08:45)
[2020-01-10] MEDS: ATORVASTATIN CALCIUM 10 MG TABLET PO SCH (08:45)
[2020-01-10] MEDS: MULTIVITAMINS WITH MINERALS, THERAPEUTIC TABLET PO SCH (08:45)
[2020-01-10 09:02] LABS: ABG A-A DIFF O2 424.3 mmHg (10-20.0); ABG BASE EXCESS -12.4 mmol/L (-2.0-3.0); ABG CARBOXYHEMOGLOBIN 0.2 % (0.0-1.5); ABG METHEMOGLOBIN 0.1 % (0.0-1.5); ABG OXYGEN CONTENT 12.2 mL/dL (15.0-23.0); ABG OXYGEN SATURATION 92.4 % (95.0-98.0); ABG OXYHEMOGLOBIN 92.1 % (94.0-100.0); ABG PCO2 45 mmHg (35-45); ABG TOTAL HEMOGLOBIN 9.4 G/dL (12.0-18.0); PO2, ARTERIAL BG 63.4 mmHg (84.0-92.0); SOURCE, BLOOD GAS ARTERIAL; TEMPERATURE, FAHRENHEIT, BG 97.5 FAHREN (96.0-98.6)
[2020-01-10 09:14] LABS: O2 DEVICE,BLOOD GAS VENTILATOR (ROOM AIR); SITE, BLOOD GAS RT RADIAL; VENT MODE, BG APRV (ROOM AIR)
[2020-01-10 09:15] LABS: SPONTANEOUS VT, BG 752 ml
[2020-01-10] MEDS: NOREPINEPHRINE 4 MG/D5%-WATER 250 ML IV PRN (10:18)
[2020-01-10] MEDS ORDERED: SODIUM CHLORIDE 0.9% 1,000 ML ONE (14:20)
[2020-01-10 16:37] LABS: GLUCOSE,POINT OF CARE 144 MG/DL (70-110)
[2020-01-10] MEDS: CefTAZidime PENTAHYDRATE 1 GM in DEXTROSE 5%-WATER 50 ML IV SCH (16:55)
[2020-01-10] MEDS: DEXTROSE 5%-0.45% SODIUM CHL 1,000 ML IV SCH (16:56)
[2020-01-11] VITALS (9 sets, daily range): BP systolic 103–175; BP diastolic 51–85
[2020-01-11] MEDS: MetroNIDAZOLE 500 MG/NACL 100 ML IV SCH ×4 (00:51→22:24)
[2020-01-11] MEDS: NITROGLYCERIN 2% (1 GM=INCH) PACKET TP SCH ×4 (00:52→23:26)
[2020-01-11] MEDS: DEXTROSE 5%-0.45% SODIUM CHL 1,000 ML IV SCH (01:00)
[2020-01-11] MEDS: NOREPINEPHRINE 4 MG/D5%-WATER 250 ML IV PRN ×2 (01:03→13:48)
[2020-01-11 02:11] LABS: GLUCOSE,POINT OF CARE 123 MG/DL (70-110)
[2020-01-11 03:56] LABS: GLUCOSE,POINT OF CARE 72 MG/DL (70-110)
[2020-01-11 03:56] LABS: GLUCOSE,POINT OF CARE 142 MG/DL (70-110)
[2020-01-11 03:56] LABS: GLUCOSE,POINT OF CARE 106 MG/DL (70-110)
[2020-01-11 05:39] LABS: HEMATOCRIT 27.1 % (41-53); HEMOGLOBIN 8.8 g/dL (13.5-17.5); MEAN CORPUSCULAR HEMOGLOBIN 28.1 pg (26.0-34.0); MEAN CORPUSCULAR HGB CONC 32.6 G/dL (31.0-37.0); MEAN CORPUSCULAR VOLUME 86 fL (80-100); PLATELET COUNT (AUTO) 136 K/uL (150-450); RED BLOOD CELL COUNT(AUTO) 3.14 MIL/uL (4.50-5.90); RED CELL DISTRIBUTION WIDTH 15.4 % (11.5-14.5)
[2020-01-11 06:27] LABS: ALBUMIN 0.6 g/dL (3.4-5.0); BILIRUBIN,TOTAL 0.2 mg/dL (0.1-1.0); C-REACTIVE PROTEIN QUANT 17.96 mg/dL (0.00-0.30); CALCIUM, TOTAL 7.1 mg/dL (8.8-10.5); CREATININE 3.53 mg/dL (0.60-1.30); POTASSIUM 3.4 mmol/L (3.5-5.1); TOTAL PROTEIN, SERUM 5.2 g/dL (6.4-8.2)
[2020-01-11 06:43] LABS: D-DIMER 16.78 mg/L FEU (0.00-0.50)
[2020-01-11 07:44] LABS: GLUCOSE,POINT OF CARE 150 MG/DL (70-110)
[2020-01-11 08:02] LABS: BAND NEUTROPHILS % (MANUAL) 17 % (0-5); LYMPHOCYTES % (MANUAL) 2 % (22-44); MONOCYTES % (MANUAL) 1 % (2-9); SEGMENTED NEUTROPHILS % 80 % (40-70)
[2020-01-11] MEDS: MULTIVITAMINS WITH MINERALS, THERAPEUTIC TABLET PO SCH (09:08)
[2020-01-11] MEDS: ATORVASTATIN CALCIUM 10 MG TABLET PO SCH (09:09)
[2020-01-11] MEDS: FAMOTIDINE 20 MG TABLET PO SCH (09:09)
[2020-01-11] MEDS: ZINC SULFATE 220 MG CAPSULE PO SCH ×2 (09:09→23:25)
[2020-01-11] MEDS: HEPARIN SODIUM,PORCINE 5,000 UNITS/ML VIAL SQ SCH ×2 (09:09→22:23)
[2020-01-11 11:02] LABS: ABG A-A DIFF O2 360.1 mmHg (10-20.0); ABG CARBOXYHEMOGLOBIN 0.3 % (0.0-1.5); ABG HCO3 18.4 mmol/L (22.0-26.0); ABG METHEMOGLOBIN 0.7 % (0.0-1.5); ABG OXYGEN CONTENT 13.7 mL/dL (15.0-23.0); ABG OXYGEN SATURATION 97.2 % (95.0-98.0); ABG OXYHEMOGLOBIN 96.2 % (94.0-100.0); ABG PCO2 66 mmHg (35-45); ABG PH 7.141 (7.35-7.450); PO2, ARTERIAL BG 104.7 mmHg (84.0-92.0); SOURCE, BLOOD GAS ARTERIAL; TEMPERATURE, FAHRENHEIT, BG 98.6 FAHREN (96.0-98.6)
[2020-01-11 11:03] LABS: O2 DEVICE,BLOOD GAS VENTILATOR (ROOM AIR); PEEP,BG 0 cm H2O; SITE, BLOOD GAS RT RADIAL; VENT MODE, BG APRV (ROOM AIR)
[2020-01-11 11:04] LABS: SPONTANEOUS VT, BG 658 ml
[2020-01-11] MEDS ORDERED: SODIUM CHLORIDE 0.9% 250 ML IV ONE (13:57)
[2020-01-11 16:00] LABS: GLUCOSE,POINT OF CARE 199 MG/DL (70-110)
[2020-01-11] MEDS: CefTAZidime PENTAHYDRATE 1 GM in DEXTROSE 5%-WATER 50 ML IV SCH (17:30)
[2020-01-11 18:09] LABS: GLUCOSE,POINT OF CARE 205 MG/DL (70-110)
[2020-01-11] MEDS: INSULIN LISPRO 100 UNITS/ML SQ PRN (18:37)
[2020-01-11 21:10] LABS: C.DIFF GDH ANTIGEN, Stool Negative (Negative); C.DIFF TOXINS A&B, Stool Negative (Negative)
[2020-01-11] MEDS: PROPOFOL 1000 MG/ISO-OSM 100 ML IV PRN (22:24)
[2020-01-12] VITALS (12 sets, daily range): BP systolic 64–140; BP diastolic 44–83
[2020-01-12] MEDS ORDERED: AMIODARONE HCL 360 MG in DEXTROSE 5%-WATER 242.8 ML IV ONE (02:45)
[2020-01-12] MEDS ORDERED: AMIODARONE HCL 150 MG in DEXTROSE 5%-WATER 97 ML IV ONE (02:45)
[2020-01-12 03:04] LABS: GLUCOSE,POINT OF CARE 174 MG/DL (70-110)
[2020-01-12 03:26] LABS: HEMOGLOBIN 9.4 g/dL (13.5-17.5); MEAN CORPUSCULAR HEMOGLOBIN 27.9 pg (26.0-34.0); MEAN CORPUSCULAR HGB CONC 32.3 G/dL (31.0-37.0); MEAN CORPUSCULAR VOLUME 87 fL (80-100); PLATELET COUNT (AUTO) 173 K/uL (150-450); RED BLOOD CELL COUNT(AUTO) 3.35 MIL/uL (4.50-5.90); RED CELL DISTRIBUTION WIDTH 15.3 % (11.5-14.5)
[2020-01-12] MEDS: DOPamine HCL 400 MG/D5%-WATER 250 ML IV PRN (03:41)
[2020-01-12 03:59] LABS: D-DIMER 8.11 mg/L FEU (0.00-0.50)
[2020-01-12] MEDS: NOREPINEPHRINE 4 MG/D5%-WATER 250 ML IV PRN ×6 (04:04→23:51)
[2020-01-12 04:23] LABS: ALBUMIN 0.6 g/dL (3.4-5.0); BILIRUBIN,TOTAL 0.2 mg/dL (0.1-1.0); C-REACTIVE PROTEIN QUANT 19.32 mg/dL (0.00-0.30); CALCIUM, TOTAL 7.6 mg/dL (8.8-10.5); CREATININE 4.44 mg/dL (0.60-1.30); POTASSIUM 3.7 mmol/L (3.5-5.1); TOTAL PROTEIN, SERUM 5.3 g/dL (6.4-8.2)
[2020-01-12 04:46] LABS: BAND NEUTROPHILS % (MANUAL) 18 % (0-5); LYMPHOCYTES % (MANUAL) 8 % (22-44); SEGMENTED NEUTROPHILS % 74 % (40-70)
[2020-01-12] MEDS: MetroNIDAZOLE 500 MG/NACL 100 ML IV SCH ×3 (06:17→22:19)
[2020-01-12 07:01] LABS: GLUCOSE,POINT OF CARE 294 MG/DL (70-110)
[2020-01-12] MEDS: FAMOTIDINE 20 MG TABLET PO SCH (08:29)
[2020-01-12] MEDS: ATORVASTATIN CALCIUM 10 MG TABLET PO SCH (08:30)
[2020-01-12] MEDS: MULTIVITAMINS WITH MINERALS, THERAPEUTIC TABLET PO SCH (08:30)
[2020-01-12] MEDS: ZINC SULFATE 220 MG CAPSULE PO SCH ×2 (08:30→21:19)
[2020-01-12] MEDS: HEPARIN SODIUM,PORCINE 5,000 UNITS/ML VIAL SQ SCH ×2 (08:30→21:20)
[2020-01-12] MEDS: NITROGLYCERIN 2% (1 GM=INCH) PACKET TP SCH ×3 (08:30→23:03)
[2020-01-12] MEDS ORDERED: AMIODARONE HCL 540 MG in DEXTROSE 5%-WATER 239.2 ML IV ONE (08:45)
[2020-01-12] MEDS: DEXTROSE 5%-0.45% SODIUM CHL 1,000 ML IV SCH (09:30)
[2020-01-12 13:18] LABS: GLUCOSE,POINT OF CARE 296 MG/DL (70-110)
[2020-01-12] MEDS: INSULIN LISPRO 100 UNITS/ML SQ PRN ×2 (14:35→23:52)
[2020-01-12 17:38] LABS: GLUCOSE,POINT OF CARE 307 MG/DL (70-110)
[2020-01-12] MEDS: CefTAZidime PENTAHYDRATE 1 GM in DEXTROSE 5%-WATER 50 ML IV SCH (18:18)
[2020-01-12] MEDS: ALBUMIN HUMAN 25%-12.5GM/50ML 50 ML IV SCH ×2 (18:20→23:51)
[2020-01-12] MEDS ORDERED: INSULIN GLARGINE,HUM.REC.ANLOG 100 UNITS/ML SQ SCH (21:00)
[2020-01-12] MEDS ORDERED: SODIUM CHLORIDE 0.9% 250 ML IV ONE (21:38)
[2020-01-12 22:05] LABS: GLUCOSE,POINT OF CARE 365 MG/DL (70-110)
[2020-01-13] VITALS: BP 123/71
[2020-01-13] MEDS: AMIODARONE HCL 750 MG in DEXTROSE 5%-WATER 485 ML IV SCH (03:21)
[2020-01-13 04:00] VITALS: BP 96/48
[2020-01-13] MEDS: DEXTROSE 5%-0.45% SODIUM CHL 1,000 ML IV SCH ×2 (04:47→21:15)
[2020-01-13] MEDS: NOREPINEPHRINE 4 MG/D5%-WATER 250 ML IV PRN ×3 (05:06→14:27)
[2020-01-13] MEDS: ALBUMIN HUMAN 25%-12.5GM/50ML 50 ML IV SCH ×4 (05:06→23:13)
[2020-01-13 05:54] LABS: GLUCOSE,POINT OF CARE 366 MG/DL (70-110)
[2020-01-13] MEDS: MetroNIDAZOLE 500 MG/NACL 100 ML IV SCH ×3 (06:03→23:13)
[2020-01-13 06:21] LABS: HEMATOCRIT 22.4 % (41-53); HEMOGLOBIN 7.2 g/dL (13.5-17.5); MEAN CORPUSCULAR HEMOGLOBIN 28.3 pg (26.0-34.0); MEAN CORPUSCULAR HGB CONC 32.4 G/dL (31.0-37.0); MEAN CORPUSCULAR VOLUME 87 fL (80-100); PLATELET COUNT (AUTO) 189 K/uL (150-450); RED BLOOD CELL COUNT(AUTO) 2.56 MIL/uL (4.50-5.90); RED CELL DISTRIBUTION WIDTH 15.5 % (11.5-14.5)
[2020-01-13] MEDS: INSULIN LISPRO 100 UNITS/ML SQ PRN (06:42)
[2020-01-13 06:45] LABS: ALBUMIN 1.4 g/dL (3.4-5.0); BILIRUBIN,TOTAL 0.3 mg/dL (0.1-1.0); C-REACTIVE PROTEIN QUANT 11.95 mg/dL (0.00-0.30); CALCIUM, TOTAL 7.6 mg/dL (8.8-10.5); CREATININE 5.29 mg/dL (0.60-1.30); POTASSIUM 3.8 mmol/L (3.5-5.1); TOTAL PROTEIN, SERUM 5.4 g/dL (6.4-8.2)
[2020-01-13 08:00] VITALS: BP 120/65
[2020-01-13] MEDS: NITROGLYCERIN 2% (1 GM=INCH) PACKET TP SCH (08:00)
[2020-01-13 08:15] LABS: GLUCOSE,POINT OF CARE 315 MG/DL (70-110)
[2020-01-13] MEDS: MULTIVITAMINS WITH MINERALS, THERAPEUTIC TABLET PO SCH (09:44)
[2020-01-13] MEDS: ATORVASTATIN CALCIUM 10 MG TABLET PO SCH (09:45)
[2020-01-13] MEDS: ZINC SULFATE 220 MG CAPSULE PO SCH ×2 (09:45→21:14)
[2020-01-13] MEDS: HEPARIN SODIUM,PORCINE 5,000 UNITS/ML VIAL SQ SCH ×2 (09:45→21:14)
[2020-01-13] MEDS: FAMOTIDINE 20 MG TABLET PO SCH (09:45)
[2020-01-13 09:57] LABS: BAND NEUTROPHILS % (MANUAL) 17 % (0-5); LYMPHOCYTES % (MANUAL) 5 % (22-44); MONOCYTES % (MANUAL) 1 % (2-9); SEGMENTED NEUTROPHILS % 77 % (40-70)
[2020-01-13 09:58] LABS: PLATELET MORPHOLOGY COMMENT GIANT PLTS PRESENT
[2020-01-13 12:00] VITALS: BP 118/69
[2020-01-13 16:00] VITALS: BP 169/77
[2020-01-13 17:04] LABS: ABG A-A DIFF O2 359.2 mmHg (10-20.0); ABG BASE EXCESS -7.4 mmol/L (-2.0-3.0); ABG CARBOXYHEMOGLOBIN 0.1 % (0.0-1.5); ABG HCO3 18.1 mmol/L (22.0-26.0); ABG METHEMOGLOBIN 0.2 % (0.0-1.5); ABG OXYGEN CONTENT 13.8 mL/dL (15.0-23.0); ABG OXYGEN SATURATION 93.9 % (95.0-98.0); ABG OXYHEMOGLOBIN 93.6 % (94.0-100.0); ABG PCO2 64 mmHg (35-45); ABG TOTAL HEMOGLOBIN 10.4 G/dL (12.0-18.0); PO2, ARTERIAL BG 72.2 mmHg (84.0-92.0); SOURCE, BLOOD GAS ARTERIAL; TEMPERATURE, FAHRENHEIT, BG 97.8 FAHREN (96.0-98.6)
[2020-01-13 17:06] LABS: ABG PH 7.146 (7.35-7.450)
[2020-01-13 17:07] LABS: O2 DEVICE,BLOOD GAS VENTILATOR (ROOM AIR); PRESSURE SUPPORT, BG 10 cm H2O; SITE, BLOOD GAS LFT RADIAL; SPONTANEOUS VT, BG 866 ml; VENT MODE, BG APRV (ROOM AIR)
[2020-01-13] MEDS ORDERED: HEPARIN SODIUM,PORCINE 1,000 UNITS/ML VIAL ONE (17:31)
[2020-01-13] MEDS ORDERED: LIDOCAINE 2% 30 ML JELLY ONE (17:37)
[2020-01-13] MEDS ORDERED: ALBUTEROL SULFATE 2.5 MG/0.5 ML NEB SOLUTION NEB ONE (17:37)
[2020-01-13] MEDS ORDERED: LIDOCAINE 4% 50 ML SOLUTION ONE (17:37)
[2020-01-13] MEDS ORDERED: BENZOCAINE 20% 50 MCG/SPRAY 57 GM ONE (17:37)
[2020-01-13] MEDS ORDERED: SODIUM BICARBONATE [ADULT] 8.4% 50 MEQ/50 ML SYRINGE IVP ONE (17:45)
[2020-01-13] MEDS: CefTAZidime PENTAHYDRATE 1 GM in DEXTROSE 5%-WATER 50 ML IV SCH (17:52)
[2020-01-13] MEDS ORDERED: SODIUM CHLORIDE 0.9% 250 ML IV ONE (19:24)
[2020-01-13 20:00] VITALS: BP 114/55
[2020-01-13 20:41] LABS: SOURCE, BLOOD GAS ARTERIAL; TEMPERATURE, FAHRENHEIT, BG 98.6 FAHREN (96.0-98.6)
[2020-01-13] MEDS ORDERED: INSULIN GLARGINE,HUM.REC.ANLOG 100 UNITS/ML SQ SCH (21:00)
[2020-01-13 21:22] LABS: ABG BASE EXCESS -4.9 mmol/L (-2.0-3.0); ABG CARBOXYHEMOGLOBIN 0.6 % (0.0-1.5); ABG HCO3 20.4 mmol/L (22.0-26.0); ABG METHEMOGLOBIN 0.2 % (0.0-1.5); ABG OXYHEMOGLOBIN 92.3 % (94.0-100.0); PO2, ARTERIAL BG 68.8 mmHg (84.0-92.0)
[2020-01-13 21:23] LABS: ABG PCO2 68 mmHg (35-45); ABG PH 7.161 (7.35-7.450); ABG TOTAL HEMOGLOBIN 7.6 G/dL (12.0-18.0); O2 DEVICE,BLOOD GAS VENTILATOR (ROOM AIR); SITE, BLOOD GAS RT RADIAL
[2020-01-13 21:24] LABS: VENT MODE, BG APRV (ROOM AIR)
[2020-01-13 21:31] LABS: GLUCOSE,POINT OF CARE 167 MG/DL (70-110)
[2020-01-13 21:31] LABS: GLUCOSE,POINT OF CARE 135 MG/DL (70-110)
[2020-01-13] MEDS: INSULIN GLARGINE,HUM.REC.ANLOG 100 UNITS/ML SQ SCH (21:52)
[2020-01-13 21:57] LABS: GLUCOSE,POINT OF CARE 192 MG/DL (70-110)
[2020-01-13 23:37] LABS: SOURCE, BLOOD GAS ARTERIAL; TEMPERATURE, FAHRENHEIT, BG 98.6 FAHREN (96.0-98.6)
[2020-01-13 23:39] LABS: ABG A-A DIFF O2 469.1 mmHg (10-20.0); ABG BASE EXCESS -4.5 mmol/L (-2.0-3.0); ABG CARBOXYHEMOGLOBIN 0.2 % (0.0-1.5); ABG HCO3 20.7 mmol/L (22.0-26.0); ABG METHEMOGLOBIN 0.9 % (0.0-1.5); ABG OXYGEN CONTENT 10.5 mL/dL (15.0-23.0); ABG OXYGEN SATURATION 98.8 % (95.0-98.0); ABG OXYHEMOGLOBIN 97.7 % (94.0-100.0); ABG PCO2 65 mmHg (35-45); PO2, ARTERIAL BG 179.4 mmHg (84.0-92.0)
[2020-01-13 23:45] LABS: ABG PH 7.184 (7.35-7.450); ABG TOTAL HEMOGLOBIN 7.3 G/dL (12.0-18.0)
[2020-01-13 23:46] LABS: O2 DEVICE,BLOOD GAS VENTILATOR (ROOM AIR); SITE, BLOOD GAS RT RADIAL; VENT MODE, BG Press. Control Vent (ROOM AIR)
[2020-01-13 23:47] LABS: PEEP,BG 12 cm H2O
[2020-01-14] VITALS (10 sets, daily range): BP systolic 94–148; BP diastolic 49–74
[2020-01-14] MEDS ORDERED: SODIUM CHLORIDE 0.9% 250 ML IV ONE (00:34)
[2020-01-14] MEDS: AMIODARONE HCL 750 MG in DEXTROSE 5%-WATER 485 ML IV SCH (00:38)
[2020-01-14] MEDS: NOREPINEPHRINE 4 MG/D5%-WATER 250 ML IV PRN ×3 (00:39→16:32)
[2020-01-14] MEDS: INSULIN LISPRO 100 UNITS/ML SQ PRN ×3 (00:58→15:25)
[2020-01-14 01:51] LABS: GLUCOSE,POINT OF CARE 209 MG/DL (70-110)
[2020-01-14] MEDS: MetroNIDAZOLE 500 MG/NACL 100 ML IV SCH ×3 (06:02→23:35)
[2020-01-14] MEDS: ALBUMIN HUMAN 25%-12.5GM/50ML 50 ML IV SCH ×4 (06:03→23:36)
[2020-01-14 08:56] LABS: MEAN CORPUSCULAR HEMOGLOBIN 27.7 pg (26.0-34.0); MEAN CORPUSCULAR VOLUME 87 fL (80-100); PLATELET COUNT (AUTO) 132 K/uL (150-450); RED BLOOD CELL COUNT(AUTO) 2.12 MIL/uL (4.50-5.90)
[2020-01-14 09:00] LABS: ABG A-A DIFF O2 394.5 mmHg (10-20.0); ABG CARBOXYHEMOGLOBIN 0.1 % (0.0-1.5); ABG HCO3 18.6 mmol/L (22.0-26.0); ABG METHEMOGLOBIN 0.1 % (0.0-1.5); ABG OXYGEN CONTENT 12.9 mL/dL (15.0-23.0); ABG OXYGEN SATURATION 97.2 % (95.0-98.0); ABG TOTAL HEMOGLOBIN 9.3 G/dL (12.0-18.0); PO2, ARTERIAL BG 105.2 mmHg (84.0-92.0); SOURCE, BLOOD GAS ARTERIAL; TEMPERATURE, FAHRENHEIT, BG 98.6 FAHREN (96.0-98.6)
[2020-01-14 09:01] LABS: HEMATOCRIT 18.4 % (41-53); HEMOGLOBIN 5.9 g/dL (13.5-17.5)
[2020-01-14 09:01] LABS: ABG PCO2 67 mmHg (35-45); ABG PH 7.135 (7.35-7.450)
[2020-01-14 09:02] LABS: O2 DEVICE,BLOOD GAS VENTILATOR (ROOM AIR); SITE, BLOOD GAS RT RADIAL; VENT MODE, BG Press. Control Vent (ROOM AIR)
[2020-01-14 09:03] LABS: PEEP,BG 12 cm H2O; SPONTANEOUS VT, BG 431 ml
[2020-01-14 09:15] LABS: BAND NEUTROPHILS % (MANUAL) 13 % (0-5); LYMPHOCYTES % (MANUAL) 4 % (22-44); SEGMENTED NEUTROPHILS % 83 % (40-70)
[2020-01-14 09:25] LABS: BILIRUBIN,TOTAL 0.4 mg/dL (0.1-1.0); C-REACTIVE PROTEIN QUANT 8.25 mg/dL (0.00-0.30); CALCIUM, TOTAL 7.4 mg/dL (8.8-10.5); CREATININE 4.16 mg/dL (0.60-1.30); POTASSIUM 3.1 mmol/L (3.5-5.1); TOTAL PROTEIN, SERUM 5.1 g/dL (6.4-8.2)
[2020-01-14 09:52] LABS: GLUCOMETER DEV NAME(LOC) AHU.; GLUCOSE,POINT OF CARE 221 MG/DL (70-110)
[2020-01-14] MEDS ORDERED: SODIUM CHLORIDE 3% 500 ML IV ONE (10:45)
[2020-01-14] MEDS: MULTIVITAMINS WITH MINERALS, THERAPEUTIC TABLET PO SCH (11:06)
[2020-01-14] MEDS: FAMOTIDINE 20 MG TABLET PO SCH (11:06)
[2020-01-14] MEDS: ZINC SULFATE 220 MG CAPSULE PO SCH ×2 (11:06→20:41)
[2020-01-14] MEDS: ATORVASTATIN CALCIUM 10 MG TABLET PO SCH (11:06)
[2020-01-14] MEDS: HEPARIN SODIUM,PORCINE 5,000 UNITS/ML VIAL SQ SCH ×2 (11:06→20:42)
[2020-01-14] MEDS ORDERED: SODIUM CHLORIDE 0.9% 1,000 ML ONE (11:09)
[2020-01-14] MEDS ORDERED: SODIUM CHLORIDE 0.9% 500 ML IV ONE (11:11)
[2020-01-14 15:01] LABS: ABG A-A DIFF O2 500.7 mmHg (10-20.0); ABG BASE EXCESS -5.6 mmol/L (-2.0-3.0); ABG CARBOXYHEMOGLOBIN 0.5 % (0.0-1.5); ABG METHEMOGLOBIN 0.1 % (0.0-1.5); ABG OXYGEN CONTENT 11.7 mL/dL (15.0-23.0); ABG OXYGEN SATURATION 98.9 % (95.0-98.0); ABG OXYHEMOGLOBIN 98.3 % (94.0-100.0); ABG PCO2 56 mmHg (35-45); ABG PH 7.217 (7.35-7.450); ABG TOTAL HEMOGLOBIN 8.2 G/dL (12.0-18.0); PO2, ARTERIAL BG 156.4 mmHg (84.0-92.0); SOURCE, BLOOD GAS ARTERIAL; TEMPERATURE, FAHRENHEIT, BG 98.6 FAHREN (96.0-98.6)
[2020-01-14 15:02] LABS: O2 DEVICE,BLOOD GAS VENTILATOR (ROOM AIR); SITE, BLOOD GAS RT RADIAL; VENT MODE, BG Press. Control Vent (ROOM AIR)
[2020-01-14 15:03] LABS: PEEP,BG 12 cm H2O; SPONTANEOUS VT, BG 564 ml
[2020-01-14] MEDS: AMIODARONE HCL 200 MG TABLET PO SCH ×2 (15:09→20:42)
[2020-01-14 17:21] LABS: HEMATOCRIT 22.1 % (41-53); HEMOGLOBIN 7.1 g/dL (13.5-17.5); MEAN CORPUSCULAR HEMOGLOBIN 27.6 pg (26.0-34.0); MEAN CORPUSCULAR VOLUME 86 fL (80-100); PLATELET COUNT (AUTO) 103 K/uL (150-450); RED BLOOD CELL COUNT(AUTO) 2.57 MIL/uL (4.50-5.90); RED CELL DISTRIBUTION WIDTH 14.8 % (11.5-14.5)
[2020-01-14 17:32] LABS: CALCIUM, TOTAL 7.7 mg/dL (8.8-10.5); CREATININE 4.3 mg/dL (0.60-1.30); PHOSPHORUS 4.3 mg/dL (2.5-4.9); POTASSIUM 3.2 mmol/L (3.5-5.1)
[2020-01-14 17:42] LABS: MAGNESIUM 1.8 mg/dL (1.80-2.40)
[2020-01-14 17:44] LABS: BAND NEUTROPHILS % (MANUAL) 12 % (0-5); LYMPHOCYTES % (MANUAL) 3 % (22-44); MONOCYTES % (MANUAL) 1 % (2-9); PLATELET MORPHOLOGY COMMENT LARGE PLTS PRESENT; SEGMENTED NEUTROPHILS % 84 % (40-70)
[2020-01-14] MEDS ORDERED: POTASSIUM CHLORIDE 10% 40 MEQ/30 ML LIQUID UDCUP PO ONE (18:45)
[2020-01-14] MEDS: CefTAZidime PENTAHYDRATE 1 GM in DEXTROSE 5%-WATER 50 ML IV SCH (18:50)
[2020-01-14] MEDS: INSULIN GLARGINE,HUM.REC.ANLOG 100 UNITS/ML SQ SCH (20:44)
[2020-01-14] MEDS: DEXTROSE 5%-0.45% SODIUM CHL 1,000 ML IV SCH (20:44)
[2020-01-15 00:02] VITALS: BP 93/48
[2020-01-15 06:09] LABS: GLUCOSE,POINT OF CARE 134 MG/DL (70-110)
[2020-01-15 06:10] LABS: HIV 1-2 SCREEN 4TH GEN W/RFLX Non Reactive (Non Reactive)
[2020-01-15 06:22] LABS: GLUCOSE,POINT OF CARE 188 MG/DL (70-110)
[2020-01-15 06:22] LABS: GLUCOSE,POINT OF CARE 119 MG/DL (70-110)
[2020-01-15 06:22] LABS: GLUCOSE,POINT OF CARE 119 MG/DL (70-110)
[2020-01-15] MEDS ORDERED: EPOETIN ALFA 10,000 UNITS/ML VIAL SQ SCH (09:00)
== END 2020-01-15 02:15 | disposition expired | DRG 207 ==
LOC: 5N 16:30 → EDBD 16:30 → 5N 01-04 08:50 → ICU 01-05 13:45
PROVIDERS: ADMIT Internal Medicine; ATTEND Internal Medicine
PROC: 0BH17EZ Insertion of Endotracheal Airway into Trachea, Via Natural or Artificial Opening (ICD-10-PCS; principal; 2020-01-06)
PROC: 5A1955Z Respiratory Ventilation, Greater than 96 Consecutive Hours (ICD-10-PCS; 2020-01-06)
PROC: 06HY33Z Insertion of Infusion Device into Lower Vein, Percutaneous Approach (ICD-10-PCS; 2020-01-07)
PROC: 5A1D70Z Performance of Urinary Filtration, Intermittent, Less than 6 Hours Per Day (ICD-10-PCS; 2020-01-07)
PROC: 0W9B30Z Drainage of Left Pleural Cavity with Drainage Device, Percutaneous Approach (ICD-10-PCS; 2020-01-08)
PROC: 5A1D70Z Performance of Urinary Filtration, Intermittent, Less than 6 Hours Per Day (ICD-10-PCS; 2020-01-10)
PROC: 5A1D70Z Performance of Urinary Filtration, Intermittent, Less than 6 Hours Per Day (ICD-10-PCS; 2020-01-13)
PROC: 30233N1 Transfusion of Nonautologous Red Blood Cells into Peripheral Vein, Percutaneous Approach (ICD-10-PCS; 2020-01-14)
DX: U07.1 COVID-19 (principal); A41.9 Sepsis, unspecified organism; J12.89 Other viral pneumonia; N17.0 Acute kidney failure with tubular necrosis; R65.21 Severe sepsis with septic shock; I21.A1 Myocardial infarction type 2; J96.01 Acute respiratory failure with hypoxia; J94.2 Hemothorax; J93.9 Pneumothorax, unspecified; E87.1 Hypo-osmolality and hyponatremia; I47.2 Ventricular tachycardia; E11.22 Type 2 diabetes mellitus with diabetic chronic kidney disease; D64.9 Anemia, unspecified; E87.6 Hypokalemia; D69.6 Thrombocytopenia, unspecified; E11.65 Type 2 diabetes mellitus with hyperglycemia; I51.4 Myocarditis, unspecified; Z66 Do not resuscitate; N18.3 Chronic kidney disease, stage 3 (moderate); Z79.899 Other long term (current) drug therapy; Z83.3 Family history of diabetes mellitus
CPT/HCPCS: 36600; 71250; 72192; 74150; 82330; 82728; 82805; 83615; 83735; 84100; 84132; 84145; 85379; 85384; 86140; 86850; 86900; 86901; 86923; 87040; 87070; 87081; 87086; 87205; 87324; 87340; 87389; 87449; 90935; 93005; 93306; 94002; 94003; 94640; G0378; J0282; J0360; J0456; J0461; J0713; J0878; J0885; J1265; J1644; J1815; J1940; J2704; J3010; J3490; J7030; J7040; J7050; J7060; P9016; P9047